=== PATIENT | female | born 1990 | race Caucasian/White ===

== ENCOUNTER 2021-12-22 11:27 | Emergency (ER) | payer SELFPAY ==
[2021-12-22] MEDS ORDERED: Sodium Chloride 0.9% 1,000 ML IV ONE (11:48)
[2021-12-22] MEDS ORDERED: Ondansetron 4 MG/2 ML SDV IVPUSH ONE (11:48)
[2021-12-22] MEDS ORDERED: Ketorolac 30 MG/ML SDV IVPUSH ONE (11:49)
[2021-12-22] MEDS ORDERED: cefTRIAXone 1 GM in Sodium Chloride 0.9% 50 ML IV ONE (12:57)
[2021-12-22 13:05] LABS: CARBON DIOXIDE,CO2 28.8 mmol/L (21.0-32.0); POTASSIUM,K 4.3 mmol/L (3.5-5.1)
== END 2021-12-22 13:41 | disposition home or self-care (01) ==
LOC: MW.ED 11:27
DX: N12 Tubulo-interstitial nephritis, not specified as acute or chronic (principal); Z88.6 Allergy status to analgesic agent
CPT/HCPCS: 36415; 80053; 81001; 81025; 85025; 87086; 87088; 87186; 96361; 96365; 96375; 99284; J0696; J1885; J2405; J7030

== ENCOUNTER 2021-12-22 22:58 | Emergency (ER) | payer SELFPAY ==
[2021-12-22] MEDS ORDERED: Ketorolac 30 MG/ML SDV IM ONE (23:19)
== END 2021-12-23 00:27 | disposition home or self-care (01) ==
LOC: MW.ED 22:58
DX: N12 Tubulo-interstitial nephritis, not specified as acute or chronic (principal); Z86.16 Personal history of COVID-19; Z88.8 Allergy status to other drugs, medicaments and biological substances
CPT/HCPCS: 74176; 96372; 99284; J1885